=== PATIENT | female | born 1960 | race Caucasian/White ===

== ENCOUNTER → 2020-05-10 | Outpatient (CLI) | payer OTHER ==
[~2020-05-10] MED LIST: NORCO 5-325 TA1 EACH PO; ZOFRAN4 MG PO
== END ==
LOC: RAD 11:37
DX: J44.1 Chronic obstructive pulmonary disease with (acute) exacerbation (principal); M54.5 Low back pain; M85.88 Other specified disorders of bone density and structure, other site; M47.816 Spondylosis without myelopathy or radiculopathy, lumbar region; M47.817 Spondylosis without myelopathy or radiculopathy, lumbosacral region; R91.8 Other nonspecific abnormal finding of lung field; M48.04 Spinal stenosis, thoracic region
CPT/HCPCS: 71046; 72100

== ENCOUNTER → 2020-11-28 | Outpatient (CLI) | payer OTHER | LOC: KOH-I 15:30 | DX: Z12.2 Encounter for screening for malignant neoplasm of respiratory organs (principal); F17.210 Nicotine dependence, cigarettes, uncomplicated | CPT/HCPCS: 71271 ==

== ENCOUNTER 2021-05-11 09:25 | Emergency (ER) | payer OTHER ==
[2021-05-11 11:00] LABS: HEMOGLOBIN 16.3 gm/dl (12.3-15.3); RED BLOOD COUNT 5.26 M/UL (4.00-5.10); WHITE BLOOD COUNT 15.3 K/UL (4.5-11.0)
[2021-05-11 11:58] LABS: BUN/CREATININE RATIO 29 (0-10)
[2021-05-11] MEDS ORDERED: ZOFRAN ODT 4 MG4 MG SL (13:57)
[2021-05-11] MEDS ORDERED: IBU600 MG PO (13:57)
[2021-05-11] MEDS ORDERED: PROTONIX 40 MG40 M1 PO (13:57)
[2021-05-11] MEDS ORDERED: BENTYL 20MG TAB20 MG PO (13:57)
== END 2021-05-11 15:20 | disposition home or self-care (01) ==
LOC: ER1 09:25
PROVIDERS: Nurse Practitioner
DX: K57.32 Diverticulitis of large intestine without perforation or abscess without bleeding (principal); K76.89 Other specified diseases of liver; K21.9 Gastro-esophageal reflux disease without esophagitis; E78.5 Hyperlipidemia, unspecified; J44.9 Chronic obstructive pulmonary disease, unspecified; Z88.2 Allergy status to sulfonamides; Z20.822 Contact with and (suspected) exposure to COVID-19
CPT/HCPCS: 0240U; 80053; 80307; 81001; 82550; 82553; 83605; 83690; 84484; 85025; 96372; 96374; 96375; 99284; C9113; J0500; J1200; J1885; J2405; J2765; J7040; Q9967

== ENCOUNTER 2021-05-11 19:45 | Emergency (ER) | payer OTHER ==
[~2021-05-11 19:45] MED LIST changes: +BENTYL 20MG TAB20 MG PO; +IBU600 MG PO; +PROTONIX 40 MG40 M1 PO; +ZOFRAN ODT 4 MG4 MG SL
[2021-05-11 20:31] LABS: HEMOGLOBIN 14.6 gm/dl (12.3-15.3)
[2021-05-11 20:32] LABS: RED BLOOD COUNT 4.67 M/UL (4.00-5.10); WHITE BLOOD COUNT 9.2 K/UL (4.5-11.0)
[2021-05-11 20:51] LABS: BUN/CREATININE RATIO 25 (0-10)
== END 2021-05-11 22:23 | disposition home or self-care (01) ==
LOC: ER1 19:45
PROVIDERS: Physician Assistant
DX: R10.9 Unspecified abdominal pain (principal); R11.2 Nausea with vomiting, unspecified; J44.9 Chronic obstructive pulmonary disease, unspecified; Z88.2 Allergy status to sulfonamides; F17.200 Nicotine dependence, unspecified, uncomplicated; Z79.899 Other long term (current) drug therapy
CPT/HCPCS: 80053; 83690; 85025; 99284

== ENCOUNTER → 2021-05-17 | Outpatient (CLI) | payer OTHER | LOC: RAD 12:28 | DX: M54.50 Low back pain, unspecified (principal); M51.36 Other intervertebral disc degeneration, lumbar region; M53.3 Sacrococcygeal disorders, not elsewhere classified | CPT/HCPCS: 72100; 72220 ==

== ENCOUNTER → 2021-06-27 | Outpatient (CLI) | payer OTHER | LOC: MAMO 11:30 | DX: Z12.31 Encounter for screening mammogram for malignant neoplasm of breast (principal) | CPT/HCPCS: 77063; 77067 ==